=== PATIENT | female | born 1970 | race Two or more races ===

== ENCOUNTER 2021-12-04 01:59 | Emergency (ER) | payer MEDICAID ==
[~2021-12-04] VITALS: Ht 175.3 cm; Wt 62.1 kg
[2021-12-04 06:06] VITALS: BP 142/84
[2021-12-04] MEDS ORDERED: ACET-1158 PO (07:29)
[2021-12-04] MEDS ORDERED: SULF800T7 PO (07:29)
[2021-12-04] MEDS ORDERED: TETANUS-DIPTH-ACEL PERTUSSIS 0.5ML SYR Tdap IM ONE (07:30)
[2021-12-04] MEDS ORDERED: cefTRIAXone SOD 1,000 MG VL IM ONE (07:30)
[2021-12-04] MEDS ORDERED: LIDOCAINE 1%HCL (LOCAL ANESTH) 10 ML MDV ONE (07:39)
[2021-12-04] MEDS ORDERED: LIDOCAINE 1% HCL (LOCAL ANESTH.) INJ 20ML MDV ID ONE (07:45)
== END 2021-12-04 07:55 | disposition home or self-care (01) ==
LOC: ER 01:59
DX: L03.115 Cellulitis of right lower limb (principal); F17.210 Nicotine dependence, cigarettes, uncomplicated; Z79.899 Other long term (current) drug therapy; Z88.0 Allergy status to penicillin
CPT/HCPCS: 90471; 90715; 96372; 99284; J0696; J2001